=== PATIENT | female | born 1995 | race Two or more races ===

== ENCOUNTER 2017-10-09 18:27 | Emergency (ER) | payer MEDICAID, OTHER ==
[~2017-10-09] VITALS: Ht 152.4 cm; Wt 49.9 kg
[2017-10-09 18:54] VITALS: BP 101/54
== END 2017-10-09 22:05 | disposition home or self-care (01) ==
LOC: ER 18:27
DX: S96.911A Strain of unspecified muscle and tendon at ankle and foot level, right foot, initial encounter (principal); W17.2XXA Fall into hole, initial encounter; Y93.89 Activity, other specified; Y92.89 Other specified places as the place of occurrence of the external cause; Y99.8 Other external cause status
CPT/HCPCS: 29515; 73610

== ENCOUNTER 2018-03-28 19:24 | Emergency (ER) | payer MEDICAID, OTHER ==
[~2018-03-28] VITALS: Ht 152.4 cm; Wt 52.2 kg
[2018-03-28 20:19] LABS: Basophils # (auto) 0 uL; Eosinophils # (auto) 0.2 uL; Lymphocytes # (auto) 1.1 uL; Monocytes # (auto) 0.6 uL
[2018-03-28 20:22] LABS: Basophils % (auto) 0.7 % (0.0-2.0); Hematocrit 34.4 % (36.0-46.0); Hemoglobin 11.4 g/dL (12.2-16.2); Mean Corpuscular Hemoglobin 24.9 pg (28.0-32.0); Mean Corpuscular Hgb Conc. 33.1 g/dL (32.0-36.0); Mean Corpuscular Volume 75.2 fL (80.0-100.0); Monocytes % (auto) 10.7 % (0.0-12.0); Neutrophils # (auto) 3.2 uL; Neutrophils % (auto) 62.6 % (37.0-80.0); Platelet Count (auto) 275 10^3/uL (140-450); Red Blood Cells 4.57 10^6/uL (4.0-5.20); Red Cell Distribution Width 16.1 % (11.8-14.3); White Blood Cell 5.2 10^3/uL (4.4-10.8)
[2018-03-28 20:45] LABS: Albumin 3.6 g/dL (3.4-5.0); BUN/Creatinine Ratio 9.2; Bilirubin, Total 0.4 mg/dL (0.2-1.0); Calcium 8.4 mg/dL (8.5-10.1); Potassium 3.3 mmol/L (3.5-5.1); Total Protein 7.3 g/dL (6.4-8.2)
[2018-03-28 20:56] LABS: Urine Bacteria NONE SEEN /hpf (None Seen); Urine Blood 1+ /uL (Negative); Urine Mucus FEW (None Seen); Urine Specific Gravity 1.025 (1.001-1.035); Urine WBC 10 /hpf (0 - 5)
[2018-03-29] MEDS ORDERED: DIPHENOXYLATE W/ATROPINE 2.5 MG TAB PO ONE (01:45)
[2018-03-29] MEDS ORDERED: SODIUM CHLORIDE 0.9% 1,000 ML IV ONE (01:45)
[2018-03-29] MEDS ORDERED: DONNATAL 5ml ORAL Elix (BELLADONNA ALK-PHENOBARB) PO ONE (01:45)
[2018-03-29] MEDS ORDERED: ONDANSETRON HCL 4 MG/2 ML VIAL IV ONE (01:45)
[2018-03-29 03:33] VITALS: BP 101/53
== END 2018-03-29 03:40 | disposition home or self-care (01) ==
LOC: ER 19:24
DX: K52.9 Noninfective gastroenteritis and colitis, unspecified (principal)
CPT/HCPCS: 36415; 80053; 81001; 81025; 85025; 96361; 96374; 99284; J2405

== ENCOUNTER 2019-07-17 15:02 | Emergency (ER) | payer MEDICAID ==
[~2019-07-17] VITALS: Ht 152.4 cm; Wt 57.6 kg
[2019-07-17 15:14] VITALS: BP 109/55
== END 2019-07-17 17:45 | disposition home or self-care (01) ==
LOC: ER 15:02
DX: M54.42 Lumbago with sciatica, left side (principal)
CPT/HCPCS: 72100

== ENCOUNTER 2022-07-11 22:15 | Emergency (ER) | payer BC, MEDICAID ==
[~2022-07-11] VITALS: Ht 154.9 cm; Wt 50.9 kg
[2022-07-11 22:45] VITALS: BP 117/73
[2022-07-11 23:42] LABS: Urine Amorphous Crystal FEW /hpf (None Seen); Urine Bacteria FEW /hpf (None Seen); Urine Blood 1+ /uL (Negative); Urine Budding Yeast MODERATE /hpf (None Seen); Urine Mucus FEW (None Seen); Urine Specific Gravity 1.014 (1.001-1.035); Urine WBC 146 /hpf (0 - 5); Urine WBC Clumps PRESENT /hpf (None Seen)
== END 2022-07-12 04:24 | disposition left against medical advice (07) ==
LOC: ER 22:17
DX: R10.2 Pelvic and perineal pain (principal); R19.7 Diarrhea, unspecified; R11.10 Vomiting, unspecified; Z53.21 Procedure and treatment not carried out due to patient leaving prior to being seen by health care provider
CPT/HCPCS: 81001; 81025

== ENCOUNTER 2023-06-01 08:59 | Inpatient (IN) | payer BC, OTHER ==
[~2023-06-01] VITALS: Ht 154.9 cm; Wt 67.9 kg
[2023-06-01] VITALS (8 sets, daily range): BP systolic 111–138; BP diastolic 59–79; PULSE 66–97; RESP 11–18; TEMP 98.3; O2SAT 95–98
[2023-06-01 09:22] LABS: Basophils # (auto) 0 10 ^3/uL (0-0.2); Basophils % (auto) 0.8 % (0.0-2.0); Eosinophils # (auto) 0.1 10 ^3/uL (0-0.8); Eosinophils % (auto) 1.8 % (0.0-7.0); Hemoglobin 13.3 g/dL (12.2-16.2); Lymphocytes # (auto) 1.8 10 ^3/uL (0.4-5.4); Lymphocytes % (auto) 36.2 % (10.0-50.0); Mean Corpuscular Hemoglobin 28.3 pg (28.0-32.0); Mean Corpuscular Hgb Conc. 34.2 g/dL (32.0-36.0); Mean Corpuscular Volume 82.8 fL (80.0-100.0); Monocytes # (auto) 0.4 10 ^3/uL (0-1.3); Monocytes % (auto) 7.2 % (0.0-12.0); Neutrophils # (auto) 2.7 10 ^3/uL (1.6-8.6); Nucleated Red Blood Cells % 0.1 %; Red Blood Cells 4.71 10^6/uL (4.0-5.20); Red Cell Distribution Width 14.7 % (11.8-14.3); White Blood Cell 4.9 10^3/uL (4.4-10.8)
[2023-06-01 09:31] LABS: Urine Bacteria FEW /hpf (None Seen); Urine Blood 3+ /uL (Negative); Urine Clarity Clear (Clear); Urine Color Colorless (Yellow); Urine Mucus FEW (None Seen); Urine Protein, UAD Negative (Negative); Urine Specific Gravity 1.009 (1.001-1.035); Urine Urobilinogen Normal (Negative); Urine WBC 7 /hpf (0 - 5)
[2023-06-01 09:40] LABS: Alanine Aminotransferase 22 U/L (7-40); Albumin 4.6 g/dL (3.2-4.8); Alkaline Phosphatase 58 U/L (46-116); Anion Gap 8 (5-15); Aspartate Aminotransferase 24 U/L (13-40); Bilirubin, Total 0.9 mg/dL (0.2-1.0); Blood Urea Nitrogen 8 mg/dL (9-23); Calcium 9.3 mg/dL (8.5-10.1); Carbon Dioxide 25 mmol/L (20-30); Chloride 106 mmol/L (98-107); Glucose 91 mg/dL (74-106); Potassium 3.8 mmol/L (3.5-5.1); Sodium 139 mmol/L (136-145); Total Protein 7.1 g/dL (5.7-8.2)
[2023-06-01 10:18] LABS: Amphetamine Screen, Urine Neg (NEGATIVE)
[2023-06-01 10:19] LABS: Barbiturate Scree,Urine Neg (NEGATIVE); Benzodiazephine Screen, Urine Neg (NEGATIVE); Cannabinoid Screen, Urine Neg (NEGATIVE); Cocaine Screen, Urine Neg (NEGATIVE); Opiate Scree,Urine Neg (NEGATIVE); Phencyclidine Screen, Urine Neg (NEGATIVE)
[2023-06-01 10:27] LABS: INR 1.03 (0.9-1.15); Prothrombin Time 10.8 sec (9.3-11.8)
[2023-06-01 10:46] LABS: Free T3 3.9 pg/mL (2.3-4.2)
[2023-06-01 10:47] LABS: Free T4 (Free Thyroxine) 1.09 ng/dL (0.89-1.76)
[2023-06-01 10:56] LABS: Lipase 42 U/L (12-53)
[2023-06-01] MEDS ORDERED: FAMO20TA10 PO (12:03)
[2023-06-01] MEDS ORDERED: ASPirin-EC 325mg tab PO ONE (12:45)
[2023-06-01] MEDS ORDERED: ANGIOMAX 250 MG VIAL IV ONE (15:11)
[2023-06-01] MEDS ORDERED: IODIXANOL 320MG/ML 100ML BTL IV ONE (15:12)
[2023-06-01] MEDS ORDERED: VERAPAMIL 2.5MG/ML INJ 2ML VIAL IV ONE (15:12)
[2023-06-01] MEDS ORDERED: fentaNYL CITRATE 100 MCG/2 ML VL ONE (15:12)
[2023-06-01] MEDS ORDERED: HEPARIN SODIUM (PORCINE) 5000 UNITS/ML 1ML VIAL ONE (15:12)
[2023-06-01] MEDS ORDERED: MIDAZOLAM HCL 2MG/2ML 2ml VIAL (1mg/ml) ONE (15:12)
[2023-06-01] MEDS ORDERED: LIDOCAINE 2%HCL (LOCAL ANESTH.) INJ 20ML MDV ONE (15:12)
[2023-06-01] MEDS ORDERED: SODIUM CHL 0.9% 0 ML ONE (15:12)
[2023-06-01] MEDS ORDERED: HYDROcodone-ACET 5/325MG TAB PO PRN (16:15)
[2023-06-01] MEDS ORDERED: ACETAMINOPHEN 325 MG TAB PO PRN (16:15)
[2023-06-01] MEDS ORDERED: MORPHINE SULFATE INJ 2 MG/ml SYRG IV PRN (16:15)
[2023-06-01] MEDS ORDERED: ONDANSETRON HCL 4 MG/2 ML VIAL IV PRN (16:15)
[2023-06-01] MEDS ORDERED: COLCHICINE 0.6 MG CAP PO ONE (17:15)
[2023-06-01] MEDS: COLCHICINE 0.6 MG CAP PO SCH (23:04)
[2023-06-02 04:52] VITALS: BP 92/52; PULSE 67; RESP 16; TEMP 98; O2SAT 97
[2023-06-02 08:00] VITALS: PULSE 70; PULSE 88; RESP 14; O2SAT 98
[2023-06-02 09:05] VITALS: BP 102/49; PULSE 82; RESP 18; TEMP 98.1; O2SAT 97
[2023-06-02] MEDS: COLCHICINE 0.6 MG CAP PO SCH (09:41)
[2023-06-02] MEDS ORDERED: COLCHICINE 0.6 MG CAP PO SCH (10:00)
[2023-06-02] MEDS ORDERED: COLC0.6T56 PO (10:08)
[2023-06-02 13:00] VITALS: BP 99/56; PULSE 81; RESP 18; TEMP 97.5; O2SAT 94
[2023-06-02 15:26] VITALS: BP 101/62; PULSE 86; RESP 17; TEMP 97.6; O2SAT 99
== END 2023-06-02 16:00 | disposition home or self-care (01) | DRG 281 ==
LOC: ER 08:59 → TELE 16:10 → TELE-EAST 17:27
PROVIDERS: ADMIT Internal Medicine; ATTEND Internal Medicine
PROC: 4A023N7 Measurement of Cardiac Sampling and Pressure, Left Heart, Percutaneous Approach (ICD-10-PCS; principal; 2023-06-01)
PROC: B211YZZ Fluoroscopy of Multiple Coronary Arteries using Other Contrast (ICD-10-PCS; 2023-06-01)
PROC: B215YZZ Fluoroscopy of Left Heart using Other Contrast (ICD-10-PCS; 2023-06-01)
DX: I21.A1 Myocardial infarction type 2 (principal); I31.9 Disease of pericardium, unspecified; K21.9 Gastro-esophageal reflux disease without esophagitis
CPT/HCPCS: 36415; 71046; 80053; 80307; 81001; 83690; 84439; 84443; 84481; 84484; 84702; 85025; 85379; 85610; 93005; 93306; 93458; 99152; 99291; G0378; J2250; Q9967

== ENCOUNTER 2024-04-10 08:02 | Emergency (ER) | payer BC ==
[~2024-04-10] VITALS: Ht 154.9 cm; Wt 66.7 kg
[~2024-04-10 08:02] MED LIST: COLC0.6T56 PO; FAMO20TA10 PO
[2024-04-10] MEDS: SODIUM CHLORIDE 0.9% 500 ML IVB ONE (11:00)
[2024-04-10] MEDS: METOCLOPRAMIDE HCL 5MG/ml INJ 2ml VIAL IV ONE (11:00)
[2024-04-10] MEDS: SODIUM CHLORIDE 0.9% 1,000 ML IV ONE (11:00)
[2024-04-10] MEDS: KETOROLAC TROMETH 30 MG/ML 1ML VIAL IV ONE (11:05)
[2024-04-10 11:27] LABS: Urine Bacteria None Seen /hpf (None Seen)
[2024-04-10 11:52] LABS: Urine Blood 2+ /uL (Negative); Urine Clarity Clear (Clear); Urine Color Light-Yellow (Yellow); Urine Mucus FEW (None Seen); Urine Protein, UAD Negative (Negative); Urine Specific Gravity 1.014 (1.001-1.035); Urine Urobilinogen Normal (Negative); Urine WBC 10 /hpf (0 - 5); Urine pH 5.5 (5.0-9.0)
[2024-04-10 12:12] LABS: Alanine Aminotransferase 20 U/L (7-40); Albumin 4.4 g/dL (3.2-4.8); Alkaline Phosphatase 53 U/L (46-116); Anion Gap 8 (5-15); Aspartate Aminotransferase 18 U/L (13-40); BUN/Creatinine Ratio 8.8 (10.0-20.0); Bilirubin, Total 0.8 mg/dL (0.2-1.0); Blood Urea Nitrogen < 5 mg/dL (9-23); Calcium 8.9 mg/dL (8.7-10.4); Carbon Dioxide 21 mmol/L (20-30); Chloride 111 mmol/L (98-107); Glucose 78 mg/dL (74-106); Lipase 37 U/L (12-53); Magnesium 2.1 mg/dL (1.6-2.6); Potassium 3.5 mmol/L (3.5-5.1); Sodium 140 mmol/L (136-145); Total Protein 7.2 g/dL (5.7-8.2)
[2024-04-10 12:20] LABS: Basophils # (auto) 0 10 ^3/uL (0-0.2); Basophils % (auto) 0.7 % (0.0-2.0); Eosinophils # (auto) 0.2 10 ^3/uL (0-0.8); Eosinophils % (auto) 3.1 % (0.0-7.0); Hematocrit 41.9 % (36.0-46.0); Hemoglobin 14.1 g/dL (12.2-16.2); Lymphocytes # (auto) 1.8 10 ^3/uL (0.4-5.4); Lymphocytes % (auto) 27.8 % (10.0-50.0); Mean Corpuscular Hemoglobin 29.5 pg (28.0-32.0); Mean Corpuscular Hgb Conc. 33.6 g/dL (32.0-36.0); Mean Corpuscular Volume 87.7 fL (80.0-100.0); Monocytes # (auto) 0.4 10 ^3/uL (0-1.3); Monocytes % (auto) 6.7 % (0.0-12.0); Neutrophils # (auto) 3.9 10 ^3/uL (1.6-8.6); Neutrophils % (auto) 61.7 % (37.0-80.0); Nucleated Red Blood Cells % 0.1 %; Platelet Count (auto) 226 10^3/uL (140-450); Red Blood Cells 4.78 10^6/uL (4.0-5.20); Red Cell Distribution Width 14.5 % (11.8-14.3); White Blood Cell 6.4 10^3/uL (4.4-10.8)
[2024-04-10] MEDS: cefTRIAXone 1GM/50ML D5W 50 ML IV ONE (15:38)
[2024-04-10 15:42] VITALS: TEMP 98.3
[2024-04-10 15:43] VITALS: O2SAT 100
[2024-04-10] MEDS ORDERED: PHEN-922 PO (15:54)
[2024-04-10] MEDS: ONDANSETRON HCL 4 MG/2 ML VIAL IV ONE (16:02)
[2024-04-10 17:20] VITALS: BP 115/66; PULSE 88; RESP 18; O2SAT 100
== END 2024-04-10 17:27 | disposition home or self-care (01) ==
LOC: ER 08:06
DX: N30.90 Cystitis, unspecified without hematuria (principal); R10.2 Pelvic and perineal pain; Z79.899 Other long term (current) drug therapy; Z32.02 Encounter for pregnancy test, result negative
CPT/HCPCS: 36415; 71046; 74177; 80053; 81001; 83690; 83735; 84702; 85025; 87086; 96361; 96365; 96375; 99285; J0696; J1885; J2405; J7040; Q9967

== ENCOUNTER 2024-08-28 06:29 | Emergency (ER) | payer BC ==
[~2024-08-28] VITALS: Ht 154.9 cm; Wt 66.3 kg
[~2024-08-28 06:29] MED LIST changes: +PHEN-922 PO
--- NOTE | 2024-08-28 07:27 | ED.PDOC ---
SOB-HPI HPI Comments A 28 YEAR OLD FEMALE PRESENTS TO THE ED WITH COMPLAINT OF COUGH AND SORE THROAT. PATIENT STATES SHE HAS BEEN EXPERIENCING A COUGH, CONGESTION, AND SORE THROAT OFF AND ON FOR THE PAST 3 WEEKS. PATIENT NOTES SHE INITIALLY HAD A FEVER 3 WEEKS AGO, BUT DOES NOT HAVE A FEVER AT THIS TIME. PATIENT DENIES CHILLS, SHORTNESS OF BREATH, CHEST PAIN, ABDOMINAL PAIN, NAUSEA, VOMITING, HEADACHE, OR OTHER COMPLAINTS. NO OTHER SYMPTOMS OR MODIFYING FACTORS AT THIS TIME. PATIENT IS ALERT, ORIENTED X 4, AND HAS STEADY GAIT. Chief Complaint: Flu like Time Seen by MD: 06:40 Primary Care Provider: Mohini Reviewed notes: Nurses Notes, Medications, Allergies Information Source: Patient Mode of Arrival: Ambulatory Severity: Moderate Timing: Weeks Duration: Intermittent Context: Spontaneous Onset PE Risk Factors: None History of: None Prehospital treatment: None Modifying Factors: Nothing Associated Signs and Symptoms: Cough, Nasal Congestion, Sore Throat If cough with SOB: Productive Past Medical History PAST MEDICAL HISTORY: UTI'S Surgical History: Denies all surgeries COLLABORATING SUPERVISING PHYSICIAN History: No Pertinent COLLABORATING SUPERVISING PHYSICIAN History Family History Family History: Reviewed,noncontributory to illness Social History Smoker: Non-Smoker Alcohol: Rarely Drugs: Denies Drug Use Lives In: Home Constitutional: denies: chills, diaphoresis, fatigue, fever, malaise, sweats, weakness, others EENTM: reports: nose congestion, throat pain, throat swelling; denies: blurred vision, double vision, ear bleeding, ear discharge, ear drainage, ear pain, ear ringing, eye pain, eye redness, hearing loss, mouth pain, mouth swelling, nasal discharge, nose bleeding, nose pain, photophobia, tearing, voice changes, others Respiratory: reports: cough; denies: hemoptysis, orthopnea, SOB at rest, shortness of breath, SOB with excertion, stridor, wheezing, others Cardiovascular: denies: chest pain, dizzy spells, diaphoresis, Dyspnea on exertion, edema, irregular heart beat, left arm pain, lightheadedness, palpitations, PND, syncope, others Gastrointestinal: denies: abdomen distended, abdominal pain, blood streaked bowels, constipated, diarrhea, dysphagia, difficulty swallowing, hematemesis, melena, nausea, poor appetite, poor fluid intake, rectal bleeding, rectal pain, vomiting, others Genitourinary: denies: abnormal vagina bleeding, burning, dyspareunia, dysuria, flank pain, frequency, hematuria, incontinence, pain, , vagina discharge, urgency, others Neurological: denies: dizziness, fainting, headache, left sided numbness, left sided weakness, numbness, paresthesia, pre-existing deficit, right sided numbness, right sided weakness, seizure, speech problems, tingling, tremors, weakness, others Musculoskeletal: denies: back pain, gout, joint pain, joint swelling, muscle pain, muscle stiffness, neck pain, others Integumetry: denies: bruises, change in color, change in hair/nails, dryness, laceration, lesions, lumps, rash, wounds, others Allergic/Immunocompromised: denies: Difficulty Healing, Frequent Infections, Hives, Itching, others Hematologic/Lymphatic: denies: anemia, blood clots, easy bleeding, easy bruising, swollen glands, others Endocrine: denies: excessive hunger, excessive sweating, excessive thirst, excessive urination, flushing, intolerance to cold, intolerance to heat, unexplained weight gain, unexplained weight loss, others Psychiatric: denies: anxiety, bipolar disorder, depression, hopeless, panic disorder, schizophrenia, sleepless, suicidal, others All Other Systems: Reviewed and Negative Physical Exam General Appearance: No Apparent Distress, Normal HEENT: PERRL/EOMI, Pharyngeal Erythema (TONSILLAR SWELLING, NO EXUDATES. ), TMs Normal Neck: Full Range of Motion, Non-Tender, Normal, Normal Inspection Respiratory: Chest Non-Tender, Expiration, No Accessory Muscle Use, No Respiratory Distress, Normal Breath Sounds, Rhonchi Cardiovascular: No Edema, No JVD, No Murmur, No Gallop, Normal Peripheral Pulses, Regular Rate/Rhythm Breast Exam: Deferred Gastrointestinal: No Organomegaly, Non Tender, No Pulsatile Mass, Normal Bowel Sounds, Soft Genitalia: Deferred Pelvic: Deferred Rectal: Deferred Extremities: No calf tenderness, Normal capillary refill, Normal inspection, Normal range of motion, Non-tender, No pedal edema Musculoskeletal : Apperance: Normal Neurologic: Alert, hr generalist II-XII nml as Tested, No Motor Deficits, Normal Affect, Normal Mood, No Sensory Deficits Cerebellar Function: Normal Reflexes: Normal Skin: Dry, Normal Color, Warm Peripheral Pulses: 2+ carotid (R), 2+ carotid (L) Lymphatic: No Adenopathy Was a procedure done? Was a procedure done?: No Differential Dx Differential Diagnosis: Bronchitis, Pneumonia, Sinusitis, Allergic Rhinitis, O titis Media, Pharyngitis, URI X-Ray, Labs, Meds, VS Vital Signs Date Time Temp Pulse Resp B/P (MAP) Pulse Ox O2 Delivery O2 Flow Rate FiO2 08/28/24 06:35 97.5 111 22 112/48 (69) 97 Current Medications Medications (Trade) Dose Ordered Sig/Stewart Route Start Time Stop Time Status Last Admin Ceftriaxone Sodium (Rocephin) 1,000 mg ONCE ONCE IM 08/28/24 07:30 08/28/24 07:31 DC 08/28/24 07:32 CHEST RADIOGRAPH Indication: COUGH X 3 WEEKS Technique: Frontal and lateral view of the chest was obtained Comparison: XY CHEST TWO VIEWS ROUTINE on DOS: 04/10/24, XY CHEST TWO VIEWS ROUTINE on DOS: 06/01/23 FINDINGS: Lines and Tubes: None Lungs: Clear Pleura: No effusion. No pneumothorax. Cardiomediastinal contours: Unremarkable Bones: Unremarkable IMPRESSION: 1. No evidence of acute disease. ATED BY: BRAULIO MANCILLA MD DICTATED DATE/TIME: 08/28/24727 SIGNED BY: BRALUIO MANCILLA MD SIGNED DATE/TIME: 08/28/24727 CC: X-Ray, Labs, Meds, VS Comment EXTERNAL MEDICAL RECORDS REVIEWED: [NONE] INDEPENDENT HISTORIANS: [NONE] SOCIAL DETERMINANTS OF HEALTH: [NONE] LABS ORDERED: NONE REVIEWED AND INTERPRETED RESULTS: NONE IMAGING ORDERED: XR CHEST TREATMENTS ORDERED: ROCEPHIN 1 G IM PROCEDURES PERFORMED: NONE CRITICAL CARE TIME: NONE I HAVE DISCUSSED THE PATIENT WITH THE ATTENDING PHYSICIAN DR. CASH AND HE AGREES WITH THE PATIENT'S PLAN OF CARE AND DISPOSITION. BASED ON HISTORY OF PRESENT ILLNESS, AND PHYSICAL EXAM, PATIENT WILL BE DISCHARGED HOME. SHARED DECISION MAKING: PATIENT INSTRUCTED TO FOLLOW UP WITH PRIMARY CARE PROVIDER IN 1-2 DAYS FOR RE-EVALUATION OF SYMPTOMS. PATIENT VERBALIZES UNDERSTANDING TO RETURN TO ED FOR NEW OR WORSENING SYMPTOMS OR IF FOLLOW UP WITH PCP CANNOT BE OBTAINED. PATIENT FEELS COMFORTABLE GOING HOME AT THIS TIME. ALL QUESTIONS ADDRESSED AT TIME OF DISCHARGE. Images Reviewed?: Images reviewed and evaluated by me Time of 1ST Reevaluation: 07:50 Reevaluation 1ST: Improved Patient Education/Counseling: Diagnosis, Treatment, Need For Follow Up Family Education/Counseling: Diagnosis, Treatment, Need For Follow Up Medical Screening: No EMC Exist At This Time Departure 1 Departure Time of Disposition: 07:50 Impression: Primary Impression: Acute tonsillitis Qualified Codes: J03.90 - Acute tonsillitis, unspecified Additional Impression: Acute bronchitis Qualified Codes: J20.9 - Acute bronchitis, unspecified Disposition: HOME / SELF CARE / HOMELESS Condition: Stable Additional Instructions: FOLLOW-UP WITH PCP IN 1 TO 2 DAYS. TAKE MEDICATIONS PRESCRIBED. RETURN TO ED FOR ANY NEW OR WORSENING SYMPTOMS. e-Prescriptions Promethazine-Dm (Promethazine Dm 6.25-15 mg/5Ml) 1 Echo Echo 5 ML PO TID, #180 ML Prov: ERIC ELIAS 08/28/24 Azithromycin (ZITHROMAX TABLET) 250 Mg Tb 250 MG PO DAILY, #6 TAB Prov: ERIC ELIAS 08/28/24 Discharged With: Self Critical Care Note Critical Care Time?: No Stability Stability form required: No Heart Score Heart Score: Heart Score Response (Comments) Value History N/A 0 EKG N/A 0 Age N/A 0 Risk Factors N/A 0 Troponin N/A 0 Total 0 I personally scribed for ERIC ELIAS ([email or web address]) on 08/28/24 at 07:27. Electronically submitted by Shabbir Mejia ([email or web address]). I personally scribed for ERIC ELIAS ([email or web address]) on 08/28/24 at 07:38. Electronically submitted by Shabbir Mejia ([email or web address]). ERIC ELIAS Aug 28, 2024 07:27
[2024-08-28] MEDS: cefTRIAXone SOD 1,000 MG VL IM ONE (07:32)
[2024-08-28 07:40] VITALS: BP 112/48; PULSE 111; RESP 12; TEMP 97.5; O2SAT 97
[2024-08-28] MEDS ORDERED: AZIT-185 PO (07:40)
[2024-08-28] MEDS ORDERED: PROM1SOL4 PO (07:40)
== END 2024-08-28 08:01 | disposition home or self-care (01) ==
LOC: ER 06:29
DX: J03.90 Acute tonsillitis, unspecified (principal); J20.9 Acute bronchitis, unspecified
CPT/HCPCS: 71046; 96372; 99283; J0696

== ENCOUNTER 2025-07-04 08:59 | Inpatient (IN) | payer BC ==
[~2025-07-04] VITALS: Ht 152.4 cm; Wt 61.9 kg
[~2025-07-04 08:59] MED LIST changes: +AZIT-185 PO; +PROM1SOL4 PO
[2025-07-04 09:46] LABS: Hemoglobin 11.5 g/dL (12.2-16.2)
[2025-07-04 09:48] LABS: Hematocrit 34.0 % (36.0-46.0); Mean Corpuscular Hemoglobin 26.4 pg (28.0-32.0); Mean Corpuscular Volume 77.9 fL (80.0-100.0); Nucleated Red Blood Cells % 0.0 %
--- NOTE | 2025-07-04 09:48 | DVH ---
CHEST RADIOGRAPH Indication: CHEST PAIN Technique: Single frontal view of the chest was obtained Comparison: 08/28/2024 FINDINGS: Lines and Tubes: None Lungs: No focal consolidation. Pleura: No effusion. No pneumothorax. Cardiomediastinal contours: Unremarkable Bones: No acute osseous abnormality. IMPRESSION: 1. No acute cardiopulmonary disease.
--- NOTE | 2025-07-04 09:51 | ED.PDOC ---
HPI Comments A 29 YEAR OLD FEMALE PRESENTS TO THE ED WITH COMPLAINT OF CHEST PAIN. PATIENT STATES SHE HAS BEEN EXPERIENCING UPPER CHEST PAIN THAT STARTED TODAY WHILE SHE WAS AT WORK. PATIENT REPORTS SHE HAS ALSO HAD A MILD DIFFICULTY BREATHING SENSATION AND TINGLING IN HER BILATERAL ARMS. PATIENT NOTES THAT SHE HAD A LOT OF STRESS 3 DAYS AGO, BUT IS NOT SURE IF THIS IS RELATED TO HER CURRENT SYMPTOMS. PATIENT DENIES FEVER, CHILLS, SHORTNESS OF BREATH, ABDOMINAL PAIN, NAUSEA, VOMITING, HEADACHE, OR OTHER COMPLAINTS. NO OTHER SYMPTOMS OR MODIFYING FACTORS AT THIS TIME. PATIENT IS ALERT, ORIENTED X 4, AND HAS STEADY GAIT. Chief Complaint: Chest Pain Time Seen by MD: 09:23 Primary Care Provider: Denies Reviewed Notes: Nurses Notes, Medications, Allergies Allergies: Coded Allergies: NO KNOWN ALLERGIES (Unverified , 08/05/15) Home Meds Active Scripts Promethazine-Dm (Promethazine Dm 6.25-15 mg/5Ml) 1 Echo Echo, 5 ML PO TID, #180 ML Prov:ERIC ELIAS 08/28/24 Azithromycin (ZITHROMAX TABLET) 250 Mg Tb, 250 MG PO DAILY, #6 TAB Prov:ERIC ELIAS 08/28/24 Phenazopyridine HCl (Phenazopyridine Hydrochlo) 200 Mg Tab, 200 MG PO TID, #30 TAB Prov:XIMENA CASH MD 04/10/24 Colchicine (COLCRYS TABLET) 0.6 Mg Tb, 0.6 MG PO BID, #56 TAB Take 1 tablet by mouth twice daily to complete a 2-week course followed by 1 tablet daily to complete an additional 4 weeks. Prov:ADELA ALMEIDA MD 06/02/23 Famotidine (PEPCID TABLET) 20 Mg Tb, 1 TAB PO BID PRN for 10 Days, #20 TAB 5 Refills Prov:ANETA COLLINS MD 06/01/23 Information Source: Patient Mode of Arrival: Ambulatory Severity: Mild, Moderate Timing: Hours Duration: Since onset, Hours Prehospital treatment: None Radiation: No Radiation Quality: Aching, Tightness Onset: At Rest Cardiac Risk Factors: None PE Risk Factors: None History of: None Modifying Factors: Nothing Associated Signs and Symptoms: None Past Medical History PAST MEDICAL HISTORY: MO, UTI'S Surgical History: Denies all surgeries WINDOW SHADE CUTTER History: No Pertinent WINDOW SHADE CUTTER History Family History Family History: Reviewed,noncontributory to illness Social History Smoker: Non-Smoker Alcohol: Rarely Drugs: Denies Drug Use Lives In: Home Constitutional: reports: others (ANXIOUS ); denies: chills, diaphoresis, fatigue, fever, malaise, sweats, weakness EENTM: denies: blurred vision, double vision, ear bleeding, ear discharge, ear drainage, ear pain, ear ringing, eye pain, eye redness, hearing loss, mouth pain, mouth swelling, nasal discharge, nose bleeding, nose congestion, nose pain, photophobia, tearing, throat pain, throat swelling, voice changes, others Respiratory: denies: cough, hemoptysis, orthopnea, SOB at rest, shortness of breath, SOB with excertion, stridor, wheezing, others Cardiovascular: reports: chest pain; denies: dizzy spells, diaphoresis, Dyspnea on exertion, edema, irregular heart beat, left arm pain, lightheadedness, palpitations, PND, syncope, others Gastrointestinal: denies: abdomen distended, abdominal pain, blood streaked bowels, constipated, diarrhea, dysphagia, difficulty swallowing, hematemesis, melena, nausea, poor appetite, poor fluid intake, rectal bleeding, rectal pain, vomiting, others Genitourinary: denies: abnormal vagina bleeding, burning, dyspareunia, dysuria, flank pain, frequency, hematuria, incontinence, pain, , vagina discharge, urgency, others Neurological: reports: tingling; denies: dizziness, fainting, headache, left sided numbness, left sided weakness, numbness, paresthesia, pre-existing deficit, right sided numbness, right sided weakness, seizure, speech problems, tremors, weakness, others Musculoskeletal: denies: back pain, gout, joint pain, joint swelling, muscle pain, muscle stiffness, neck pain, others Integumetry: denies: bruises, change in color, change in hair/nails, dryness, laceration, lesions, lumps, rash, wounds, others Allergic/Immunocompromised: denies: Difficulty Healing, Frequent Infections, Hives, Itching, others Hematologic/Lymphatic: denies: anemia, blood clots, easy bleeding, easy bruising, swollen glands, others Endocrine: denies: excessive hunger, excessive sweating, excessive thirst, excessive urination, flushing, intolerance to cold, intolerance to heat, unexplained weight gain, unexplained weight loss, others Psychiatric: denies: anxiety, bipolar disorder, depression, hopeless, panic disorder, schizophrenia, sleepless, suicidal, others All Other Systems: Reviewed and Negative Physical Exam General Appearance: Mild Distress, Normal HEENT: Normal ENT Inspection, PERRL/EOMI, Pharynx Normal, TMs Normal Neck: Full Range of Motion, Non-Tender, Normal, Normal Inspection Respiratory: Chest Non-Tender, Lungs Clear, No Accessory Muscle Use, No Respiratory Distress, Normal Breath Sounds Cardiovascular: No Edema, No JVD, No Murmur, No Gallop, Normal Peripheral Pulses, Regular Rate/Rhythm Breast Exam: Deferred Gastrointestinal: No Organomegaly, Non Tender, No Pulsatile Mass, Normal Bowel Sounds, Soft Genitalia: Deferred Pelvic: Deferred Rectal: Deferred Extremities: No calf tenderness, Normal capillary refill, Normal inspection, Normal range of motion, Non-tender, No pedal edema Musculoskeletal : Apperance: Normal Neurologic: Alert, mastic floor layer II-XII nml as Tested, No Motor Deficits, Normal Affect, Normal Mood, No Sensory Deficits Cerebellar Function: Normal Reflexes: Normal Skin: Dry, Normal Color, Warm Peripheral Pulses: 2+ carotid (R), 2+ carotid (L) Lymphatic: No Adenopathy EKG EKG : Pulse Rate (adult): 84 [place]: Normal Cardiac Rhythm: NSR Block: None Hypertrophy: None ST: Normal Was a procedure done? Was a procedure done?: No CP Differential Dx Differential Diagnosis: Angina, Anxiety / Panic Attack, Hyperthyroidism, Hyperventilation, MO Differential Diagnosis: N/A Differential Diagnosis: Angina, Chest Wall Pain, Costochondritis, Esophageal reflux/spasm, Myocardial Infarction X-Ray, Labs, Meds, VS Vital Signs Date Time Temp Pulse Resp B/P (MAP) Pulse Ox O2 Delivery O2 Flow Rate FiO2 07/04/25 14:00 98.6 93 18 113/41 (65) 100 98.6 07/04/25 13:58 98.1 87 18 118/70 (86) 100 98.1 07/04/25 13:51 82 07/04/25 10:04 68 07/04/25 10:01 84 07/04/25 09:59 98.9 78 19 126/78 (94) 100 98.9 07/04/25 09:59 78 07/04/25 09:10 98.0 90 16 124/75 98 98.0 07/04/25 09:06 84 Lab Test 07/04/25 12:33 07/04/25 10:10 07/04/25 09:17 Range/Units Troponin I High Sensitivity 61 *H 13 3 L </=34 ng/L Thyroid Stimulating Hormone (TSH) 0.63 0.55-4.78 uIU/mL White Blood Count 4.2 L 4.4-10.8 10^3/uL Red Blood Count 4.36 4.0-5.20 10^6/uL Hemoglobin 11.5 L 12.2-16.2 g/dL Hematocrit 34.0 L 36.0-46.0 % Mean Corpuscular Volume 77.9 L 80.0-100.0 fL Mean Corpuscular Hemoglobin 26.4 L 28.0-32.0 pg Mean Corpuscular Hemoglobin Concent 33.8 32.0-36.0 g/dL Red Cell Distribution Width 15.4 H 11.8-14.3 % Platelet Count 256 140-450 10^3/uL Mean Platelet Volume 8.3 6.9-10.8 fL Neutrophils (%) (Auto) 56.2 37.0-80.0 % Lymphocytes (%) (Auto) 32.5 10.0-50.0 % Monocytes (%) (Auto) 8.3 0.0-12.0 % Eosinophils (%) (Auto) 2.0 0.0-7.0 % Basophils (%) (Auto) 1.0 0.0-2.0 % Neutrophils # (Auto) 2.3 1.6-8.6 10 ^3/uL Lymphocytes # (Auto) 1.4 0.4-5.4 10 ^3/uL Monocytes # (Auto) 0.3 0-1.3 10 ^3/uL Eosinophils # (Auto) 0.1 0-0.8 10 ^3/uL Basophils # (Auto) 0 0-0.2 10 ^3/uL Nucleated Red Blood Cells 0.0 % Sodium Level 143 136-145 mmol/L Potassium Level 3.8 3.5-5.1 mmol/L Chloride Level 108 H 98-107 mmol/L Carbon Dioxide Level 25 20-31 mmol/L Anion Gap 10 5-15 Blood Urea Nitrogen 6 L 9-23 mg/dL Creatinine 0.67 0.550-1.02 mg/dL Glomerular Filtration Rate Calc 120 >90 mL/min BUN/Creatinine Ratio 9.0 L 10.0-20.0 Serum Glucose 85 74-106 mg/dL Calcium Level 9.0 8.7-10.4 mg/dL Total Bilirubin 0.6 0.2-1.0 mg/dL Aspartate Amino Transferase (AST) 17 13-40 U/L Alanine Aminotransferase (ALT) 11 7-40 U/L Alkaline Phosphatase 50 46-116 U/L Total Protein 7.1 5.7-8.2 g/dL Albumin 4.5 3.2-4.8 g/dL Current Medications Medications (Trade) Dose Ordered Sig/Stewart Route Start Time Stop Time Status Last Admin Aspirin 162 mg ONCE ONCE PO 07/04/25 13:45 07/04/25 13:48 DC 07/04/25 13:53 Sodium Chloride 1,000 ml @ 150 mls/hr Q6H40M ONCE IV 07/04/25 13:45 07/04/25 20:24 07/04/25 13:53 CHEST RADIOGRAPH Indication: CHEST PAIN Technique: Single frontal view of the chest was obtained Comparison: 08/28/2024 FINDINGS: Lines and Tubes: None Lungs: No focal consolidation. Pleura: No effusion. No pneumothorax. Cardiomediastinal contours: Unremarkable Bones: No acute osseous abnormality. IMPRESSION: 1. No acute cardiopulmonary disease. ATED BY: MARGRET ABERNATHY Jr., DO DICTATED DATE/TIME: 07/04/25945 SIGNED BY: MARGRET ABERNATHY Jr., SIGNED DATE/TIME: 07/04/25945 CC: X-Ray, Labs, Meds, VS Comment EXTERNAL MEDICAL RECORDS REVIEWED: [NONE] INDEPENDENT HISTORIANS: [NONE] SOCIAL DETERMINANTS OF HEALTH: [NONE] LABS ORDERED: CBC, CMP, TROPONIN, TSH REVIEWED AND INTERPRETED RESULTS: TROPONIN 61 IMAGING ORDERED: XR CHEST TREATMENTS ORDERED:ASA 62MG PO PROCEDURES PERFORMED: NONE CRITICAL CARE TIME: NONE I HAVE DISCUSSED THE PATIENT WITH THE ATTENDING PHYSICIAN DR. CASH AND HE AGREES WITH THE PATIENT'S PLAN OF CARE. PATIENT WAS RE-EVALUATED AGAIN AND SHE STATED SHE NO LONGER HAS ANY SYMPTOMS AND FEELS BETTER. UPON MY PHYSICAL EXAMINATION, THE PATIENT WAS WELL IN APPEARANCE AND HAD NO SI GNS OF RESPIRATORY DISTRESS AT THIS TIME. PATIENT'S LABS REVEALED AN ELEVATED TROPONIN OF 61. DUE TO THE PATIENT'S ELEVATED TROPONIN, I HAVE DETERMINED THE PATIENT NEEDS TO BE ADMITTED FOR FURTHER TREATMENT AND EVALUATION. THE ON-CALL ADMITTING PHYSICIAN WILL BE CONTACTED AND THE PATIENT WILL BE ADMITTED FOR FURTHER TREATMENT AND CARDIOLOGY CONSULT. 1410: I HAVE DISCUSSED THE PATIENT'S LABS, IMAGING, AND CONDITION WITH DR. RIVAS AND HE HAS A ACCEPTED THE PATIENT FOR ADMISSION TO TELEMETRY AT THIS TIME . Images Reviewed?: Images reviewed and evaluated by me Time of 1ST Reevaluation: 14:00 Reevaluation 1ST: Unchanged Patient Education/Counseling: Diagnosis, Treatment Family Education/Counseling: Diagnosis, Treatment SEPSIS Sepsis Screen Date sepsis recognized/suspect: Jul 04, 2025 Time Sepsis recognized/suspect: 911 Recent Procedure: No On Antibiotic Therapy: No Respiratory Rate >20: No Heart Rate >90: No Temp<36 C (96.8 F) or >38.3 C: No SBP <90 or MAP <65 mmHG: No New Acute Mental Status Change: No Is the patient on CPAP, BIPAP,: No Physician Orders Chest Portable (07/04/25 09:09) Electrocardigram (07/04/25 10:09) Heplock Iv (07/04/25 ) Sodium Chloride 0.9% (07/04/25 13:45) * Cardiology Consult (07/04/25 13:52) Vital Signs Date Time Temp Pulse Resp B/P (MAP) Pulse Ox O2 Delivery O2 Flow Rate FiO2 07/04/25 14:00 98.6 93 18 113/41 (65) 100 98.6 07/04/25 13:58 98.1 87 18 118/70 (86) 100 98.1 07/04/25 13:51 82 07/04/25 10:04 68 07/04/25 10:01 84 07/04/25 09:59 98.9 78 19 126/78 (94) 100 98.9 07/04/25 09:59 78 07/04/25 09:10 98.0 90 16 124/75 98 98.0 07/04/25 09:06 84 Laboratory Tests Test 07/04/25 09:17 White Blood Count 4.2 10^3/uL (4.4-10.8) L Medications Medications Dose Ordered Sig/Stewart Route Start Time Stop Time Status Last Admin Dose Admin Aspirin 162 mg ONCE ONCE PO 07/04/25 13:45 07/04/25 13:48 DC 07/04/25 13:53 Sodium Chloride 1,000 ml @ 150 mls/hr Q6H40M ONCE IV 07/04/25 13:45 07/04/25 20:24 07/04/25 13:53 Departure 1 Departure Time of Disposition: 14:00 Impression: Primary Impression: Acute chest pain Additional Impression: Elevated troponin Disposition: ADMITTED INPATIENT Condition: Serious Critical Care Note Critical Care Time?: No Stability Stability form required: Yes Unstable for transfer: Requires medication, ED Physician Assesment, Possible rapid decline Heart Score Heart Score: Heart Score Response (Comments) Value History Moderate Suspicious 1 EKG Normal 0 Age <45 0 Risk Factors 1 or 2 risk factors 1 Troponin 1-2 x's Normal limit 1 Total 3 I personally scribed for ERIC ELIAS ([email or web address]) on 07/04/25 at 09:51. Electronically submitted by Shabbir Mejia ([employer]). I personally scribed for ERIC ELIAS ([email or web address]) on 07/04/25 at 10:01. Electronically submitted by Shabbir Mejia ([employer]). I personally scribed for ERIC ELIAS ([email or web address]) on 07/04/25 at 10:34. Electronically submitted by Shabbir Mejia ([employer]). I personally scribed for ERIC ELIAS ([email or web address]) on 07/04/25 at 11:24. Electronically submitted by Shabbir Mejia ([employer]). I personally scribed for ERIC ELIAS ([email or web address]) on 07/04/25 at 11:31. Electronically submitted by Shabbir Mejia ([employer]). I personally scribed for ERIC ELIAS ([email or web address]) on 07/04/25 at 14:36. Electronically submitted by Shabbir Mejia ([employer]). ERIC ELIAS Jul 04, 2025 09:51
[2025-07-04 10:01] LABS: Alanine Aminotransferase 11 U/L (7-40); Albumin 4.5 g/dL (3.2-4.8); Alkaline Phosphatase 50 U/L (46-116); Anion Gap 10 (5-15); BUN/Creatinine Ratio 9.0 (10.0-20.0); Bilirubin, Total 0.6 mg/dL (0.2-1.0); Calcium 9.0 mg/dL (8.7-10.4); Carbon Dioxide 25 mmol/L (20-31); Glucose 85 mg/dL (74-106); Potassium 3.8 mmol/L (3.5-5.1); Sodium 143 mmol/L (136-145); Total Protein 7.1 g/dL (5.7-8.2)
[2025-07-04 10:03] LABS: Blood Urea Nitrogen 6 mg/dL (9-23); Chloride 108 mmol/L (98-107)
[2025-07-04] MEDS: SODIUM CHLORIDE 0.9% 1,000 ML IV ONE (13:53)
[2025-07-04] MEDS ORDERED: ACETAMINOPHEN 325 MG TAB PO PRN (14:30)
[2025-07-04] MEDS ORDERED: MORPHINE SULFATE INJ 2 MG/ml SYRG IV PRN ×2 (14:30)
[2025-07-04] MEDS ORDERED: NITROGLYCERIN 0.4 MG SL TAB SL PRN (14:30)
[2025-07-04] MEDS ORDERED: HYDROcodone-ACET 5/325MG TAB PO PRN (14:30)
[2025-07-04] MEDS ORDERED: ONDANSETRON HCL 4 MG/2 ML VIAL IV PRN (14:30)
--- NOTE | 2025-07-04 14:36 | ECG ---
[facility] Test Date: 2025-07-04 Test Time: 10:00:20 Pat Name: LAURA BROWN Department: [facility] ED Patient ID: [id number] Room: [address] [place] [address] Gender: F Supervisor Cell Efficiency: BUSHRA : 1995 Requested By: GABRIEL RAINEY Order Number: [id number] Reading MD: Jef Cabrales Measurements Intervals [place] Rate: 68 P: 6 NM: 115 QRS: 101 QRSD: 122 T: 58 QT: 414 QTc: 441 Interpretive Statements Sinus rhythm Borderline short NM interval Right bundle branch block Electronically Signed On 07-07-2025 10:55:57 PST by Jef Cabrales Please click the below link to view image of tracing.
[2025-07-04] MEDS: SODIUM CHLORIDE 0.9% 1,000 ML IV SCH (15:01)
[2025-07-04 15:38] VITALS: PULSE 94; RESP 18; O2SAT 99
--- NOTE | 2025-07-04 16:23 | DVHINCON2 ---
Date Seen: Jul 04, [address] Che Reason for Consultation Chest pain History of Present Illness A 29-year-old patient with PMHx significant only for prior coronary angiography in [address] 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 The pain was pressure-like, non-radiating, and associated with shortness of breath and tingling in both arms. No associated nausea, vomiting, diaphoresis, palpitations, syncope, fever, cough, or recent viral illness. The pain partially improved with rest. She has had no recent travel, immobilization, hormone use, or similar prior episodes. She denied stimulant use. 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 No known CAD. No other chronic conditions reported. Past Surgical History: None reported. Medications: None reported. Allergies: No known drug allergies. Family History: No premature coronary artery disease reported. Social History: Works full-time. Denies tobacco, alcohol, or recreational drugs. Patient states last monday she had a stress situation Diagnostics: EKG: Normal sinus rhythm; no ST-T abnormalities. Chest X-ray: Normal. Troponins: 3, 13, 61 (mild elevation without [id number] pattern consistent with ACS). Prior angiography (2022): Clean coronaries. Allergies: Coded Allergies: NO KNOWN ALLERGIES (Unverified , 08/05/15) Home Meds Active Scripts Promethazine-Dm (Promethazine Dm 6.25-15 mg/5Ml) 1 Echo Echo, 5 ML PO TID, #180 ML Prov:ERIC ELIAS 08/28/24 Azithromycin (ZITHROMAX TABLET) 250 Mg Tb, 250 MG PO DAILY, #6 TAB Prov:ERIC ELIAS 08/28/24 Phenazopyridine HCl (Phenazopyridine Hydrochlo) 200 Mg Tab, 200 MG PO TID, #30 TAB Prov:XIMENA CASH MD 04/10/24 Colchicine (COLCRYS TABLET) 0.6 Mg Tb, 0.6 MG PO BID, #56 TAB Take 1 tablet by mouth twice daily to complete a 2-week course followed by 1 tablet daily to complete an additional 4 weeks. Prov:ADELA ALMEIDA MD 06/02/23 Famotidine (PEPCID TABLET) 20 Mg Tb, 1 TAB PO BID PRN for 10 Days, #20 TAB 5 Refills Prov:ANETA COLLINS MD 06/01/23 Current Medications Current Medications Medications (Trade) Dose Ordered Sig/Stewart Route PRN Reason Start Time Stop Time Status Last Admin Sodium Chloride 1,000 ml @ 60 mls/hr [id number] IV 07/04/25 14:30 07/04/25 15:01 Acetaminophen/ Hydrocodone Bitart (Plain 5/325MG Tab) 1 tab Q4HP PRN PO MODERATE PAIN (4-6 PAIN SCALE) 07/04/25 14:30 Ondansetron HCl (Zofran) 4 mg Q4HP PRN IV NAUSEA / VOMITING 07/04/25 14:30 Enoxaparin Sodium (Lovenox) 40 mg DAILY SC 07/05/25 10:00 Acetaminophen (Tylenol Tablet) 650 mg Q6HP PRN PO PAIN SCALE 1-3 OR TEMP>100.4 07/04/25 14:30 Morphine Sulfate 2 mg Q4HPRN PRN IV SEVERE PAIN (7-10 PAIN SCALE) 07/04/25 14:30 Nitroglycerin (Ntrostat Sublingual) 0.4 mg Q5MINP PRN SL FOR CHEST PAIN 07/04/25 14:30 Morphine Sulfate 2 mg Q30M PRN IV FOR CHEST PAIN 07/04/25 14:30 Review of Systems Constitutional: No fever, chills, or weight loss. Cardiac: Chest pain as above; no palpitations or orthopnea. Respiratory: Dyspnea with pain; no wheezing or cough. GI: No nausea, vomiting, or abdominal pain. Neuro: Tingling in bilateral arms during episode; no weakness or syncope. All other systems reviewed and negative. Vital Signs Vital Signs Date Time Temp Pulse Resp B/P (MAP) Pulse Ox O2 Delivery O2 Flow Rate FiO2 07/04/25 16:00 81 18 116/44 (68) 100 07/04/25 15:44 Room Air* 0 21 07/04/25 14:00 98.6 98.6 Physical Exam General: Alert, oriented, in no acute distress. HEENT: Normal. Neck: Supple, no JVD. Heart: Regular rate and rhythm, no murmurs, rubs, or gallops. Lungs: Clear to auscultation bilaterally; no wheezes or crackles. Abdomen: Soft, non-tender, non-distended. Extremities: No edema; good perfusion. Neuro: Nonfocal; moves all extremities. Skin: Warm, dry. Labs/Diagnostic Data Labs Test 07/04/25 12:33 07/04/25 10:10 07/04/25 09:17 Range/Units Troponin I High Sensitivity 61 *H </=34 ng/L Thyroid Stimulating Hormone (TSH) 0.63 0.55-4.78 uIU/mL White Blood Count 4.2 L 4.4-10.8 10^3/uL Red Blood Count 4.36 4.0-5.20 10^6/uL Hemoglobin 11.5 L 12.2-16.2 g/dL Hematocrit 34.0 L 36.0-46.0 % Mean Corpuscular Volume 77.9 L 80.0-100.0 fL Mean Corpuscular Hemoglobin 26.4 L 28.0-32.0 pg Mean Corpuscular Hemoglobin Concent 33.8 32.0-36.0 g/dL Red Cell Distribution Width 15.4 H 11.8-14.3 % Platelet Count 256 140-450 10^3/uL Mean Platelet Volume 8.3 6.9-10.8 fL Neutrophils (%) (Auto) 56.2 37.0-80.0 % Lymphocytes (%) (Auto) 32.5 10.0-50.0 % Monocytes (%) (Auto) 8.3 0.0-12.0 % Eosinophils (%) (Auto) 2.0 0.0-7.0 % Basophils (%) (Auto) 1.0 0.0-2.0 % Neutrophils # (Auto) 2.3 1.6-8.6 10 ^3/uL Lymphocytes # (Auto) 1.4 0.4-5.4 10 ^3/uL Monocytes # (Auto) 0.3 0-1.3 10 ^3/uL Eosinophils # (Auto) 0.1 0-0.8 10 ^3/uL Basophils # (Auto) 0 0-0.2 10 ^3/uL Nucleated Red Blood Cells 0.0 % Sodium Level 143 136-145 mmol/L Potassium Level 3.8 3.5-5.1 mmol/L Chloride Level 108 H 98-107 mmol/L Carbon Dioxide Level 25 20-31 mmol/L Anion Gap 10 5-15 Blood Urea Nitrogen 6 L 9-23 mg/dL Creatinine 0.67 0.550-1.02 mg/dL Glomerular Filtration Rate Calc 120 >90 mL/min BUN/Creatinine Ratio 9.0 L 10.0-20.0 Serum Glucose 85 74-106 mg/dL Calcium Level 9.0 8.7-10.4 mg/dL Total Bilirubin 0.6 0.2-1.0 mg/dL Aspartate Amino Transferase (AST) 17 13-40 U/L Alanine Aminotransferase (ALT) 11 7-40 U/L Alkaline Phosphatase 50 46-116 U/L Total Protein 7.1 5.7-8.2 g/dL Albumin 4.5 3.2-4.8 g/dL Assessment 29-year-old with atypical chest pain. Troponin pattern and imaging do not support ACS. Prior clean angiography significantly lowers likelihood of obstructive CAD. Presentation may represent musculoskeletal chest pain or recurrent perimyocarditis. Plan: 1. Chest pain: Not consistent with ACS. Provide NSAID/analgesic therapy. 2. Consider inflammatory markers (CRP/ESR) to evaluate for perimyocarditis if symptoms persist. 3. Avoid unnecessary anticoagulation or dual antiplatelet therapy given low suspicion for ACS. 4. Encourage rest and outpatient follow-up with cardiology. We will sign off of this case, call us if any questions Case discussed with Dr Roe Plan discussed with: Patient NYHA Physical activity limitations: Class1(None)absent sob, Date of Service: Jul 04, 2025 Billing Provider: ROMARIO CHEN MD Cardiology Common Codes: 65494-[id number] CARE 30-74 MIN YONI LEDESMA RESIDENT Jul 04, 2025 16:23
--- NOTE | 2025-07-04 17:03 | DVHHP2 ---
History of Present Illness Reason for Visit: Chest pain with bilateral upper extremity tingling History of Present Illness 29-year-old female with previous history of very myocarditis in the past the [facility] with chest pain vomiting. Patient also complains of shortness breath. Patient was eventually were ordered as well as cardiology consultation. Patient at the time of my examination denies any chest pain shortness of breath. Past Surgical History: None Family History: None Review of Systems Review of Systems Twelve review of system were negative except mentioned above. Allergies: Coded Allergies: NO KNOWN ALLERGIES (Unverified , 08/05/15) Medications Current Medications Medications Dose Ordered Sig/Stewart Route Start Time Stop Time Status Last Admin Dose Admin Sodium Chloride 1,000 ml @ 60 mls/hr [id number] IV 07/04/25 14:30 07/04/25 15:01 60 MLS/HR Acetaminophen/ Hydrocodone Bitart 1 tab Q4HP PRN PO 07/04/25 14:30 Ondansetron HCl 4 mg Q4HP PRN IV 07/04/25 14:30 Enoxaparin Sodium 40 mg DAILY SC 07/05/25 10:00 Acetaminophen 650 mg Q6HP PRN PO 07/04/25 14:30 Morphine Sulfate 2 mg Q4HPRN PRN IV 07/04/25 14:30 Nitroglycerin 0.4 mg Q5MINP PRN SL 07/04/25 14:30 Morphine Sulfate 2 mg Q30M PRN IV 07/04/25 14:30 Exam Vital Signs Vital Signs Date Time Temp Pulse Resp B/P (MAP) Pulse Ox O2 Delivery O2 Flow Rate FiO2 07/04/25 16:00 78 07/04/25 16:00 18 116/44 (68) 100 07/04/25 15:44 Room Air* 0 21 07/04/25 14:00 98.6 98.6 Exam HEENT pupils are reactive Neck is supple CVS S1-S2 regular rate and rhythm Respiratory diminished BS on bases GI positive bowel sound Extremity no edema B[employer]ER no motor deficits Labs/Xrays Labs Test 07/04/25 16:59 07/04/25 12:33 07/04/25 10:10 07/04/25 09:17 Range/Units Troponin I High Sensitivity 61 *H </=34 ng/L Thyroid Stimulating Hormone (TSH) 0.63 0.55-4.78 uIU/mL White Blood Count 4.2 L 4.4-10.8 10^3/uL Red Blood Count 4.36 4.0-5.20 10^6/uL Hemoglobin 11.5 L 12.2-16.2 g/dL Hematocrit 34.0 L 36.0-46.0 % Mean Corpuscular Volume 77.9 L 80.0-100.0 fL Mean Corpuscular Hemoglobin 26.4 L 28.0-32.0 pg Mean Corpuscular Hemoglobin Concent 33.8 32.0-36.0 g/dL Red Cell Distribution Width 15.4 H 11.8-14.3 % Platelet Count 256 140-450 10^3/uL Mean Platelet Volume 8.3 6.9-10.8 fL Neutrophils (%) (Auto) 56.2 37.0-80.0 % Lymphocytes (%) (Auto) 32.5 10.0-50.0 % Monocytes (%) (Auto) 8.3 0.0-12.0 % Eosinophils (%) (Auto) 2.0 0.0-7.0 % Basophils (%) (Auto) 1.0 0.0-2.0 % Neutrophils # (Auto) 2.3 1.6-8.6 10 ^3/uL Lymphocytes # (Auto) 1.4 0.4-5.4 10 ^3/uL Monocytes # (Auto) 0.3 0-1.3 10 ^3/uL Eosinophils # (Auto) 0.1 0-0.8 10 ^3/uL Basophils # (Auto) 0 0-0.2 10 ^3/uL Nucleated Red Blood Cells 0.0 % Sodium Level 143 136-145 mmol/L Potassium Level 3.8 3.5-5.1 mmol/L Chloride Level 108 H 98-107 mmol/L Carbon Dioxide Level 25 20-31 mmol/L Anion Gap 10 5-15 Blood Urea Nitrogen 6 L 9-23 mg/dL Creatinine 0.67 0.550-1.02 mg/dL Glomerular Filtration Rate Calc 120 >90 mL/min BUN/Creatinine Ratio 9.0 L 10.0-20.0 Serum Glucose 85 74-106 mg/dL Calcium Level 9.0 8.7-10.4 mg/dL Total Bilirubin 0.6 0.2-1.0 mg/dL Aspartate Amino Transferase (AST) 17 13-40 U/L Alanine Aminotransferase (ALT) 11 7-40 U/L Alkaline Phosphatase 50 46-116 U/L Total Protein 7.1 5.7-8.2 g/dL Albumin 4.5 3.2-4.8 g/dL SEPSIS Sepsis Screen Date sepsis recognized/suspect: Jul 04, 2025 Time Sepsis recognized/suspect: 1542 Recent Procedure: No On Antibiotic Therapy: No Respiratory Rate >20: No Heart Rate >90: No Temp<36 C (96.8 F) or >38.3 C: No SBP <90 or MAP <65 mmHG: No New Acute Mental Status Change: No Is the patient on CPAP, BIPAP,: No Physician Orders Chest Portable (07/04/25 09:09) Electrocardigram (07/04/25 10:09) Heplock Iv (07/04/25 ) Sodium Chloride 0.9% (07/04/25 13:45) * Cardiology Consult (07/04/25 13:52) Admit (07/04/25 14:17) Code Status (07/04/25 14:17) 2 Gm Sodium Diet (07/04/25 Dinner) Sodium Chloride 0.9% (07/04/25 14:30) Hydrocodone-Acet 5/325mg Tab ([place] 5/32 (07/04/25 14:30) Ondansetron Hcl (Zofran) (07/04/25 14:30) Enoxaparin Sodium (Lovenox) (07/05/25 10:00) Comprehensive Metabolic Panel (07/05/25 04:00) Echo 2d Mode Cardiac Dop (07/04/25 14:17) Condition: Fair (07/04/25 14:17) Acetaminophen Tablet (Tylenol Tablet) (07/04/25 14:30) Morphine Sulfate Injection (07/04/25 14:30) Nitroglycerin Sublingual (Ntrostat Subli (07/04/25 14:30) Morphine Sulfate Injection (07/04/25 14:30) Stat Ekg For Chest Pain (07/04/25 14:17) Notify Md Of Changes From Base (07/04/25 14:17) Cube Machine Tender For 24 Hours (07/04/25 14:17) Emergency Dysrhythmia Protocol (07/04/25 14:17) Rhythm Strips Once Every Shift (07/04/25 14:17) Oxygen By Nasal Cannula (07/04/25 14:17) * Cardiology Consult (07/04/25 14:17) Erythrocyte Sedimentation Rate (07/04/25 16:47) C-Reactive Protein (07/04/25 16:47) Urinalysis (07/04/25 16:59) Vital Signs Date Time Temp Pulse Resp B/P (MAP) Pulse Ox O2 Delivery O2 Flow Rate FiO2 07/04/25 16:00 78 07/04/25 16:00 81 18 116/44 (68) 100 07/04/25 15:44 99 Room Air* 0 21 07/04/25 15:38 94 18 99 Room Air* 0 21 07/04/25 14:45 77 07/04/25 14:00 98.6 93 18 113/41 (65) 100 98.6 07/04/25 13:58 98.1 87 18 118/70 (86) 100 98.1 07/04/25 13:51 82 07/04/25 10:04 68 07/04/25 10:01 84 07/04/25 09:59 98.9 78 19 126/78 (94) 100 98.9 07/04/25 09:59 78 07/04/25 09:10 98.0 90 16 124/75 98 98.0 07/04/25 09:06 84 Laboratory Tests Test 07/04/25 09:17 White Blood Count 4.2 10^3/uL (4.4-10.8) L Medications Medications Dose Ordered Sig/Stewart Route Start Time Stop Time Status Last Admin Dose Admin Aspirin 162 mg ONCE ONCE PO 07/04/25 13:45 07/04/25 13:48 DC 07/04/25 13:53 162 MG Sodium Chloride 1,000 ml @ 60 mls/hr [id number] IV 07/04/25 14:30 07/04/25 15:01 60 MLS/HR Sodium Chloride 1,000 ml @ 150 mls/hr [id number] ONCE IV 07/04/25 13:45 07/04/25 20:24 07/04/25 13:53 150 MLS/HR Assessment/Plan Assessment/Plan 29-year-old female with previous history of pericarditis/myocarditis presented to the hospital with chest pain found to have 1. Chest pain rule out GA next 2. History-of previous very myocarditis Admit to tele, 2D echo cardiology consultation. Plan discussed with: Patient My Orders Orders - MELISSA RIVAS MD Procedure Category Date Status Time Admit ADMIT 07/04/25 Transmitted 14:17 Code Status CODE 07/04/25 Transmitted 14:17 2 Gm Sodium Diet DIET 07/04/25 Transmitted Dinner Sodium Chloride 0.9% PHA 07/04/25 In Process 14:30 Hydrocodone-Acet PHA 07/04/25 In Process 5/325mg Tab ([place] 14:30 Ondansetron Hcl PHA 07/04/25 In Process (Zofran) 14:30 Enoxaparin Sodium PHA 07/05/25 In Process (Lovenox) 10:00 Comprehensive LAB 07/05/25 Verified Metabolic Panel 04:00 Echo 2d Mode Cardiac US 07/04/25 Logged DOP 14:17 Condition: Fair TERELL 07/04/25 In Process 14:17 Acetaminophen Tablet PHA 07/04/25 In Process (Tylenol Tablet) 14:30 Morphine Sulfate PHA 07/04/25 In Process Injection 14:30 Nitroglycerin PHA 07/04/25 In Process Sublingual (Ntrostat 14:30 Morphine Sulfate PHA 07/04/25 In Process Injection 14:30 Stat Ekg For Chest TERELL 07/04/25 In Process Pain 14:17 Notify Of Changes TERELL 07/04/25 In Process From Base 14:17 Cube Machine Tender For TERELL 07/04/25 In Process 24 Hours 14:17 Emergency Dysrhythmia TERELL 07/04/25 In Process Protocol 14:17 Rhythm Strips Once TERELL 07/04/25 In Process Every Shift 14:17 Oxygen By Nasal RT 07/04/25 Transmitted Cannula 14:17 * Cardiology Consult CONS 07/04/25 Transmitted 14:17 Urinalysis LAB 07/04/25 In Process 16:59 Date of Service: Jul 04, 2025 Billing Provider: MELISSA RIVAS MD Common Visit Codes: NOT BILLABLE MELISSA RIVAS MD Jul 04, 2025 17:03
[2025-07-04 18:53] LABS: Urine Protein, UAD TRACE (Negative)
[2025-07-04 22:10] VITALS: BP 110/64; PULSE 75; RESP 18; TEMP 98.4; O2SAT 98
[2025-07-04 23:07] VITALS: BP 110/64; PULSE 75; RESP 17; TEMP 98.4; O2SAT 98
[2025-07-05 05:00] VITALS: BP 105/62; PULSE 85; RESP 18; TEMP 98; O2SAT 98
[2025-07-05 06:37] LABS: Albumin 3.7 g/dL (3.2-4.8); Anion Gap 10 (5-15); BUN/Creatinine Ratio 11.1 (10.0-20.0); Carbon Dioxide 22 mmol/L (20-31); Glucose 89 mg/dL (74-106); Potassium 3.9 mmol/L (3.5-5.1); Sodium 142 mmol/L (136-145); Total Protein 6.0 g/dL (5.7-8.2)
[2025-07-05 06:38] LABS: Bilirubin, Total 0.5 mg/dL (0.2-1.0)
[2025-07-05 06:41] LABS: Alanine Aminotransferase 9 U/L (7-40); Alkaline Phosphatase 42 U/L (46-116); Blood Urea Nitrogen 6 mg/dL (9-23); Calcium 8.4 mg/dL (8.7-10.4); Chloride 110 mmol/L (98-107)
--- NOTE | 2025-07-05 07:02 | ECG ---
[facility] Test Date: 2025-07-04 Test Time: 09:04:27 Pat Name: LAURA BROWN Department: Room: [address] [place] [address] 1 Gender: F Ecd: CHARLEEN : 1995 Requested By: GABRIEL RAINEY Order Number: [id number] Reading MD: Jef Cabrales Measurements Intervals [place] Rate: 84 P: 65 ND: 138 QRS: 103 QRSD: 119 T: 68 QT: 394 QTc: 466 Interpretive Statements Sinus rhythm IRBBB and LPFB ST elev, probable normal early repol pattern Electronically Signed On 07-07-2025 10:55:54 PST by Jef Cabrales Please click the below link to view image of tracing.
[2025-07-05 09:11] VITALS: BP 101/50; PULSE 81; RESP 20; TEMP 98.3; O2SAT 96
[2025-07-05] MEDS: ENOXAPARIN SOD 40 MG/0.4 ML SYRINGE SC SCH (09:14)
--- NOTE | 2025-07-05 12:19 | DVHPN2 ---
Progress Note - Dictate Date Seen: Jul 04, 2025 Medical Necessity Reason Pt with a Central, PICC or Fol: No Subjective CHEST PAIN TROPONIN NEGATIVE ECG NEGATIVE LHC IN 2022 NL CORONARIES C RP NORMAL vital signs Vital Sign Date Time Temp Pulse Resp B/P (MAP) Pulse Ox O2 Delivery O2 Flow Rate FiO2 07/05/25 09:11 98.3 81 20 101/50 (67) 96 98.3 07/05/25 07:55 Room Air* 0 21 Total Intake and Output 07/04/25 07/04/25 07/05/25 15:00 23:00 07:00 Intake Total 1000 ml 0 ml Balance 1000 ml 0 ml medications Current Medications Medications Dose Ordered Sig/Stewart Route Start Time Stop Time Status Last Admin Dose Admin Sodium Chloride 1,000 ml @ 60 mls/hr [id number] IV 07/04/25 14:30 07/04/25 15:01 60 MLS/HR Acetaminophen/ Hydrocodone Bitart 1 tab Q4HP PRN PO 07/04/25 14:30 Ondansetron HCl 4 mg Q4HP PRN IV 07/04/25 14:30 Enoxaparin Sodium 40 mg DAILY SC 07/05/25 10:00 Acetaminophen 650 mg Q6HP PRN PO 07/04/25 14:30 Morphine Sulfate 2 mg Q4HPRN PRN IV 07/04/25 14:30 Nitroglycerin 0.4 mg Q5MINP PRN SL 07/04/25 14:30 Morphine Sulfate 2 mg Q30M PRN IV 07/04/25 14:30 laboratory and microbiology Laboratory Tests 07/05/25 05:51 07/04/25 09:17 Test 07/05/25 05:51 Range/Units Serum Glucose 89 74-106 mg/dL Problem List CHEST PAIN TROPONIN NEGATIVE ECG NEGATIVE LHC IN 2022 NL CORONARIES C RP NORMAL Assessment/Plan NON CORONARY CHEST PAIN CONSIDER ESR ECHO RESUME COLCHICINE RHEUMATOLOGY WORK UP CARDIAC MRI ID THE PREFERRED IMAGING MODALITY hs [place] HAS HIGH SENSITIVITY TO RULE OUT MYOCARDITIS Plan discussed with: Patient ROMARIO CHEN MD Jul 05, 2025 12:19
--- NOTE | 2025-07-05 12:20 | DVHPN2 ---
Progress Note - Dictate Date Seen: Jul 05, 2025 Medical Necessity Reason Pt with a Central, PICC or Fol: No Subjective CHEST PAIN TROPONIN NEGATIVE ECG NEGATIVE LHC IN 2022 NL CORONARIES C RP NORMAL vital signs Vital Sign Date Time Temp Pulse Resp B/P (MAP) Pulse Ox O2 Delivery O2 Flow Rate FiO2 07/05/25 09:11 98.3 81 20 101/50 (67) 96 98.3 07/05/25 07:55 Room Air* 0 21 Total Intake and Output 07/04/25 07/04/25 07/05/25 15:00 23:00 07:00 Intake Total 1000 ml 0 ml Balance 1000 ml 0 ml medications Current Medications Medications Dose Ordered Sig/Stewart Route Start Time Stop Time Status Last Admin Dose Admin Sodium Chloride 1,000 ml @ 60 mls/hr [id number] IV 07/04/25 14:30 07/04/25 15:01 60 MLS/HR Acetaminophen/ Hydrocodone Bitart 1 tab Q4HP PRN PO 07/04/25 14:30 Ondansetron HCl 4 mg Q4HP PRN IV 07/04/25 14:30 Enoxaparin Sodium 40 mg DAILY SC 07/05/25 10:00 Acetaminophen 650 mg Q6HP PRN PO 07/04/25 14:30 Morphine Sulfate 2 mg Q4HPRN PRN IV 07/04/25 14:30 Nitroglycerin 0.4 mg Q5MINP PRN SL 07/04/25 14:30 Morphine Sulfate 2 mg Q30M PRN IV 07/04/25 14:30 laboratory and microbiology Laboratory Tests 07/05/25 05:51 07/04/25 09:17 Test 07/05/25 05:51 Range/Units Serum Glucose 89 74-106 mg/dL Problem List CHEST PAIN TROPONIN NEGATIVE ECG NEGATIVE LHC IN 2022 NL CORONARIES C RP NORMAL Assessment/Plan NON CORONARY CHEST PAIN CONSIDER ESR ECHO RESUME COLCHICINE RHEUMATOLOGY WORK UP CARDIAC MRI ID THE PREFERRED IMAGING MODALITY hs [place] HAS HIGH SENSITIVITY TO RULE OUT MYOCARDITIS Plan discussed with: Patient ROMARIO CHEN MD Jul 05, 2025 12:20
[2025-07-05 12:28] VITALS: BP 132/69; PULSE 87; RESP 20; TEMP 98.8; O2SAT 99
[2025-07-05] MEDS ORDERED: COLC1CAP PO (16:53)
--- NOTE | 2025-07-05 16:56 | DVHDS2 ---
Discharge Summary Date of Admission Jul 04, 2025 at 14:17 Date of Discharge: Jul 05, 2025 Labs/Diagnostic Data: Laboratory Results Test 07/05/25 05:51 07/04/25 16:59 07/04/25 12:33 07/04/25 10:10 Sodium Level 142 mmol/L (136-145) Potassium Level 3.9 mmol/L (3.5-5.1) Chloride Level 110 mmol/L (98-107) Carbon Dioxide Level 22 mmol/L (20-31) Anion Gap 10 (5-15) Blood Urea Nitrogen 6 mg/dL (9-23) Creatinine 0.54 mg/dL (0.550-1.02) Glomerular Filtration Rate Calc 126 mL/min (>90) BUN/Creatinine Ratio 11.1 (10.0-20.0) Serum Glucose 89 mg/dL (74-106) Calcium Level 8.4 mg/dL (8.7-10.4) Total Bilirubin 0.5 mg/dL (0.2-1.0) Aspartate Amino Transferase (AST) 15 U/L (13-40) Alanine Aminotransferase (ALT) 9 U/L (7-40) Alkaline Phosphatase 42 U/L (46-116) Total Protein 6.0 g/dL (5.7-8.2) Albumin 3.7 g/dL (3.2-4.8) Urine Color Colorless (Yellow) Urine Clarity Turbid (Clear) Urine pH 7.0 (5.0-9.0) Urine Specific [place] 1.011 (1.001-1.035) Urine Protein Trace (Negative) Urine Ketones Negative (Negative) Urine Blood 3+ /uL (Negative) Urine Nitrite Negative (Negative) Urine Bilirubin Negative (Negative) Urine Urobilinogen Normal mg/dL (Negative) Urine Leukocyte Esterase 1+ /uL (Negative) Urine RBC 529 /hpf (0 - 4) Urine Microscopic WBC 20 /HPF (0-5) Urine Squamous Epithelial Cells Few /hpf (<5) Urine Bacteria Few /hpf (None Seen) Urine Mucus Few (None Seen) Urine Glucose Normal mg/dL (Normal) Troponin I High Sensitivity 61 ng/L (</=34) Thyroid Stimulating Hormone (TSH) 0.63 uIU/mL (0.55-4.78) Test 07/04/25 09:17 White Blood Count 4.2 10^3/uL (4.4-10.8) Red Blood Count 4.36 10^6/uL (4.0-5.20) Hemoglobin 11.5 g/dL (12.2-16.2) Hematocrit 34.0 % (36.0-46.0) Mean Corpuscular Volume 77.9 fL (80.0-100.0) Mean Corpuscular Hemoglobin 26.4 pg (28.0-32.0) Mean Corpuscular Hemoglobin Concent 33.8 g/dL (32.0-36.0) Red Cell Distribution Width 15.4 % (11.8-14.3) Platelet Count 256 10^3/uL (140-450) Mean Platelet Volume 8.3 fL (6.9-10.8) Neutrophils (%) (Auto) 56.2 % (37.0-80.0) Lymphocytes (%) (Auto) 32.5 % (10.0-50.0) Monocytes (%) (Auto) 8.3 % (0.0-12.0) Eosinophils (%) (Auto) 2.0 % (0.0-7.0) Basophils (%) (Auto) 1.0 % (0.0-2.0) Neutrophils # (Auto) 2.3 10 ^3/uL (1.6-8.6) Lymphocytes # (Auto) 1.4 10 ^3/uL (0.4-5.4) Monocytes # (Auto) 0.3 10 ^3/uL (0-1.3) Eosinophils # (Auto) 0.1 10 ^3/uL (0-0.8) Basophils # (Auto) 0 10 ^3/uL (0-0.2) Nucleated Red Blood Cells 0.0 % Erythrocyte Sedimentation Rate 8 mm/hr (0-20) C-Reactive Protein High Sensitivity 0.02 mg/dL (<1.0) Other Laboratory Tests 07/05/25 05:51 07/04/25 09:17 Brief Hx & Hospital Course: 29-year-old female with previous history of very myocarditis couple of years ago at that time coronary angiogram was normal. Patient presented to the hospital with chest pain found to have initially normotonic and 1 reading was 61. Patient was seen by Cardiology it was thought patient might be having very myocarditis and patient was recommended to be on colchicine as per Cardiology. Patient denies any chest pain shortness of breath hand there is no suspicion of any PE as patient is not tachypneic tachycardic. Patient currently on room air and denies any chest pain shortness of breath he is being discharged under stable condition with close follow-up as an outpatient with PCP as well as Cardiology. Condition at Discharge: Stable Final Diagnosis/Problems List 1. Chest pain MD ruled out 2. 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 Mildly elevated troponins, Cardiology cleared the patient to be discharged Discharge Disposition: Home SNF Discharge Will this Physician continue t: No Discharge Instruct/Medications Diet: Cardiac 2g Na,low cholest Activity: No Restrictions, As Tolerated Follow Up/Referral: Please follow up with PCP in 1 week Follow up with cardiology Dr. Chu/Dr Cabrales in 1 week for outpatient follow-up closely. Medications: Colchicine as prescribed. New Medications: Colchicine (Colchicine) 0.6 Mg Cap 0.6 MG PO BID, #28 CAP Continued Medications: Famotidine (Pepcid Tablet) 20 Mg Tb 1 TAB PO BID PRN for 10 Days, #20 TAB 5 Refills Discontinued Medications: Azithromycin (Zithromax Tablet) 250 Mg Tb 250 MG PO DAILY, #6 TAB Phenazopyridine HCl (Phenazopyridine Hydrochlo) 200 Mg Tab 200 MG PO TID, #30 TAB Promethazine-Dm (Promethazine Dm 6.25-15 mg/5Ml) 1 Echo Echo 5 ML PO TID, #180 ML Scheduled Azithromycin (Zithromax Tablet), 250 MG PO DAILY Colchicine (Colcrys Tablet), 0.6 MG PO BID Colchicine (Colchicine), 0.6 MG PO BID Phenazopyridine HCl (Phenazopyridine Hydrochlo), 200 MG PO TID Promethazine-Dm (Promethazine Dm 6.25-15 mg/5Ml), 5 ML PO TID Scheduled PRN Famotidine (Pepcid Tablet), 1 TAB PO BID PRN Discharge Statement: "Patient was advised to return to the ER or call 911 if any headaches, dizziness, shortness of breath, chest pain, abdominal pain, bleeding, fevers, or worsening of medical condition. Patient was counseled about treatment plan, medications, possible side effects, patientverbalized understanding. All questions were answered to the best of my ability. This discharge took greater then 30 minutes in planning, reviewing documentation, counseling the patient, and discussing with other team members." ASSESSMENT ASSESSMENT Assessment 1. Chest pain MD ruled out 2. 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 Mildly elevated troponins, Cardiology cleared the patient to be discharged Date of Service: Jul 05, 2025 Billing Provider: MELISSA RIVAS MD Common Visit Codes: NOT BILLABLE MELISSA RIVAS MD Jul 05, 2025 16:56
[2025-07-05 17:28] VITALS: BP 120/72; PULSE 115; RESP 20; TEMP 98.5; O2SAT 96
[2025-07-05 17:30] VITALS: TEMP 36.9
[2025-07-05] MEDS ORDERED: COLCHICINE 0.6 MG CAP PO SCH (22:00)
--- NOTE | 2025-07-06 10:50 | DVHSR ---
APPROVED REPORT EXAM: Two-dimensional and M-mode echocardiogram with Doppler and color Doppler. Blood Pressure: 105/62 mmHg INDICATION Chest Pain Elevated Troponin RISK FACTORS Height: 5', Weight: 136 DIMENSIONS LVDd 4.5 (3.8-5.7cm) LA (2D) 3.8 (1.9-4.0cm) Aortic Root 3.2 (2.0-3.7cm) LVDs 3.0 (2.5-4.0cm) LA (MM) (1.9-4.0cm) Aortic Cusp Exc 1.9 (1.5-2.0cm) EF (%) 62.0 (55-70%) Rt. Atrium 4.2 (1.9-4.0cm) Asc. Aorta cm IVSd 0.8 (0.7-1.1cm) RV (D) (1.8-2.4cm) PWd 0.8 (0.7-1.1cm) Mitral Valve Mitral Mitral Stenosis E wave 0.90m/s MV Mean GR. mmHg A wave 0.50m/s MV Peak GR. mmHg E/A ratio 1.8 2D MVA cm2 Aortic Valve Aortic Valve Aortic Stenosis V1 0.60m/s AO Mean GR. 2mmHg V2 0.90m/s AO Peak GR. 4mmHg LVOT Diameter 2.3 (1.8-2.4cm) Doppler DAVID 2.77cm2 Pulmonic Valve V2 0.60m/s Conclusion EF >55% TRACE TR TRACE MR NO PERICARDIAL EFFUSION PHUONG
== END 2025-07-05 18:19 | disposition home or self-care (01) | DRG 313 ==
LOC: ER 08:59 → OVERFLOW 14:17 → TELE-EAST 22:10
PROVIDERS: ADMIT Internal Medicine; ATTEND Internal Medicine
DX: R07.89 Other chest pain (principal); I51.4 Myocarditis, unspecified; R79.89 Other specified abnormal findings of blood chemistry; Z79.2 Long term (current) use of antibiotics; Z79.899 Other long term (current) drug therapy
CPT/HCPCS: 36415; 71045; 80053; 81001; 84443; 84484; 85025; 85652; 86141; 93005; 93306; G0378